=== PATIENT | female | born 2000 | race Caucasian/White ===

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

== ENCOUNTER 2021-09-30 21:07 | Emergency (ER) | payer MEDICAID ==
[~2021-09-30] VITALS: Ht 162.6 cm; Wt 68.4 kg
[2021-09-30] MEDS ORDERED: HYDROcodone/acetaminophen 10/325mg tab PO ONE (22:55)
[2021-09-30] MEDS ORDERED: ORPH100T2 PO (23:43)
[2021-09-30] MEDS ORDERED: HYDR-3972 PO (23:43)
--- NOTE | 2021-09-30 23:44 | NUR ---
Colar taken off, patient resting comfortably on gurney.
[2021-10-01 00:01] VITALS: BP 125/82
== END 2021-10-01 00:05 | disposition home or self-care (01) ==
LOC: ER 21:08
DX: S16.1XXA Strain of muscle, fascia and tendon at neck level, initial encounter (principal); M54.6 Pain in thoracic spine; F41.9 Anxiety disorder, unspecified; Z79.899 Other long term (current) drug therapy; V98.8XXA Other specified transport accidents, initial encounter; Y93.89 Activity, other specified; Y92.89 Other specified places as the place of occurrence of the external cause; Y99.8 Other external cause status
CPT/HCPCS: 72040; 99283; L0172; 96361; 96374; 99152; 99153

== ENCOUNTER 2022-06-28 14:30 | Emergency (ER) | payer MEDICAID, OTHER ==
[~2022-06-28] VITALS: Ht 162.6 cm; Wt 56.0 kg
[~2022-06-28 14:30] MED LIST changes: +ORPH100T2 PO
[2022-06-28 14:45] VITALS: BP 132/79
--- NOTE | 2022-06-28 15:00 | NUR ---
XRAY at bedside
[2022-06-28] MEDS ORDERED: IBUP-1986 PO (15:48)
== END 2022-06-28 15:57 | disposition home or self-care (01) ==
LOC: ER 14:31
DX: M25.512 Pain in left shoulder (principal); F41.9 Anxiety disorder, unspecified; Z87.448 Personal history of other diseases of urinary system
CPT/HCPCS: 73030; 99283

== ENCOUNTER 2022-08-19 20:30 | Emergency (ER) | payer MEDICAID ==
[~2022-08-19] VITALS: Ht 162.6 cm; Wt 59.1 kg
[~2022-08-19 20:30] MED LIST changes: +IBUP-1986 PO; -ORPH100T2 PO; +ORPH100T4 PO
[2022-08-19 21:19] LABS: BASOPHILS % (AUTO) 0.5 % (0-1); EOSINOPHILS % (AUTO) 0.2 % (0-6); HEMATOCRIT 40.8 % (35.0-45.0); HEMOGLOBIN 13.4 g/dl (12.0-16.0); LYMPHOCYTES # (AUTO) 1.5 X10'3 (1.1-4.8); LYMPHOCYTES % (AUTO) 26.1 % (21-51); MEAN CORPUSCULAR HEMOGLOBIN 28.3 PG (27.0-31.0); MEAN CORPUSCULAR HGB CONC 32.9 g/dL (33.0-36.5); MEAN CORPUSCULAR VOLUME 85.9 FL (78-98); MEAN PLATELET VOLUME 11.3 FL (7.4-10.4); MONOCYTES # (AUTO) 0.5 X10'3 (0-0.9); MONOCYTES % (AUTO) 8.6 % (2-12); NEUTROPHILS # (AUTO) 3.6 X10'3 (1.8-7.7); NEUTROPHILS % (AUTO) 64.6 % (42-75); PLATELET COUNT 119 X10'3 (140-440); RED BLOOD COUNT 4.75 X10'6 (4.20-5.60); WHITE BLOOD COUNT 5.6 X10'3 (4.5-11.0)
[2022-08-19 21:33] LABS: ALANINE AMINOTRANSFERASE 14 U/L (12-78); ALBUMIN 3.4 G/DL (3.4-5.0); ALKALINE PHOSPHATASE 51 IU/L (46-116); ANION GAP 11 (8-16); ASPARTATE AMINO TRANSFERASE 15 U/L (10-37); BILIRUBIN,TOTAL 0.3 MG/DL (0.1-1.0); BLOOD UREA NITROGEN 9 MG/DL (7-18); BUN/CREATININE RATIO 12.9 (10.0-20.0); CHLORIDE 104 MMOL/L (99-107); GLUCOSE 120 MG/DL (70-104); POTASSIUM 3.8 MMOL/L (3.5-5.1); SODIUM 142 MMOL/L (135-145); TOTAL CARBON DIOXIDE 26.8 MMOL/L (24-32); TOTAL PROTEIN 6.7 G/DL (6.4-8.2); eGFR > 90 ML/MIN
[2022-08-19 21:36] LABS: CLARITY,URINE CLEAR (Clear); COLOR,URINE YELLOW (Yellow); GLUCOSE, URINE NEGATIVE (Neg); KETONES,URINE NEGATIVE (Neg); LEUKOCYTE ESTERASE ,URINE NEGATIVE (Neg); NITRITES, URINE NEGATIVE (Neg); OCCULT BLOOD,URINE NEGATIVE (Neg); PH,URINE 7.5 (4.8-8.0); PROTEIN,URINE NEGATIVE (Neg); UROBILINOGEN,URINE 0.2 E.U/dL (0.2-1.0)
[2022-08-19 21:37] LABS: URINE HCG NEGATIVE (NEG)
[2022-08-19 21:39] LABS: CALCIUM 9.2 MG/DL (8.5-10.1)
[2022-08-19 21:40] LABS: UA COLLECTION TYPE CLN CATCH MIDSTREAM
[2022-08-19] MEDS ORDERED: POLY17PO10 PO (22:25)
[2022-08-19 22:39] VITALS: BP 126/82
== END 2022-08-19 22:41 | disposition home or self-care (01) ==
LOC: ER 20:31
DX: K92.1 Melena (principal); R10.30 Lower abdominal pain, unspecified
CPT/HCPCS: 36415; 74176; 80053; 81003; 81025; 85025; 99284

== ENCOUNTER 2022-11-23 19:05 | Emergency (ER) | payer MEDICAID ==
[~2022-11-23] VITALS: Ht 162.6 cm; Wt 47.6 kg
[2022-11-23 19:37] VITALS: TEMP 98.6
[2022-11-23] MEDS ORDERED: normal saline 1000ml 1,000 ML IV ONE (20:00)
[2022-11-23] MEDS ORDERED: ondansetron/PF 4mg/2ml inj IV ONE (20:00)
[2022-11-23 20:46] LABS: BASOPHILS % (AUTO) 0.2 % (0-1); EOSINOPHILS % (AUTO) 0.1 % (0-6); HEMATOCRIT 46.5 % (35.0-45.0); HEMOGLOBIN 15.2 g/dl (12.0-16.0); LYMPHOCYTES % (AUTO) 8.4 % (21-51); MEAN CORPUSCULAR HEMOGLOBIN 29.5 PG (27.0-31.0); MEAN CORPUSCULAR HGB CONC 32.7 g/dL (33.0-36.5); MEAN CORPUSCULAR VOLUME 90.1 FL (78-98); MEAN PLATELET VOLUME 11.1 FL (7.4-10.4); MONOCYTES # (AUTO) 0.6 X10'3 (0-0.9); MONOCYTES % (AUTO) 5.2 % (2-12); NEUTROPHILS # (AUTO) 9.8 X10'3 (1.8-7.7); NEUTROPHILS % (AUTO) 86.1 % (42-75); PLATELET COUNT 142 X10'3 (140-440); RED BLOOD COUNT 5.16 X10'6 (4.20-5.60); RED CELL DISTRIBUTION WIDTH 14.1 % (11.5-14.5); WHITE BLOOD COUNT 11.4 X10'3 (4.5-11.0)
[2022-11-23 21:01] LABS: ALANINE AMINOTRANSFERASE 20 U/L (12-78); ALBUMIN 4.1 G/DL (3.4-5.0); ALBUMIN/GLOBULIN RATIO 1.3 (1.1-1.5); ALKALINE PHOSPHATASE 63 IU/L (46-116); ANION GAP 10 (8-16); ASPARTATE AMINO TRANSFERASE 13 U/L (10-37); BILIRUBIN,TOTAL 0.5 MG/DL (0.1-1.0); BLOOD UREA NITROGEN 11 MG/DL (7-18); BUN/CREATININE RATIO 12.1 (10.0-20.0); CALCIUM 9.8 MG/DL (8.5-10.1); CHLORIDE 106 MMOL/L (99-107); CREATININE 0.91 MG/DL (0.40-0.90); GLUCOSE 112 MG/DL (70-104); LIPASE < 50 U/L (73-393); POTASSIUM 3.5 MMOL/L (3.5-5.1); SODIUM 142 MMOL/L (135-145); TOTAL CARBON DIOXIDE 26.2 MMOL/L (24-32); TOTAL PROTEIN 7.3 G/DL (6.4-8.2); eCRCL 73 ML/MIN; eGFR 78 ML/MIN
[2022-11-23 21:04] LABS: HCG SERUM QL NEGATIVE
[2022-11-23] MEDS ORDERED: proCHLORperazine 10 MG/2 ml inj IV ONE (21:15)
[2022-11-23] MEDS ORDERED: diphenhydrAMINE 50 mg/ml inj IV ONE (21:15)
[2022-11-23 21:40] LABS: URINE HCG NEGATIVE (NEG)
[2022-11-23 21:47] LABS: BILIRUBIN,URINE NEGATIVE (Neg); CLARITY,URINE SLIGHTLY CLOUDY (Clear); COLOR,URINE YELLOW (Yellow); GLUCOSE, URINE NEGATIVE (Neg); KETONES,URINE TRACE mg/dl (Neg); LEUKOCYTE ESTERASE ,URINE SMALL (Neg); NITRITES, URINE NEGATIVE (Neg); OCCULT BLOOD,URINE MODERATE (Neg); PROTEIN,URINE NEGATIVE (Neg); UROBILINOGEN,URINE 0.2 E.U/dL (0.2-1.0)
[2022-11-23 21:48] LABS: UA COLLECTION TYPE CLN CATCH MIDSTREAM
[2022-11-23 21:51] LABS: WBC,URINE 20-30 /HPF (0-4)
[2022-11-23 21:53] LABS: BACTERIA,URINE FEW /HPF (Neg); MUCUS STRANDS MANY /LPF (Neg); SQUAMOUS EPITHELIAL CELL,UR MODERATE /LPF (FEW)
[2022-11-23] MEDS ORDERED: ONDA4TAB12 PO (21:53)
[2022-11-23 22:01] LABS: LARGE PLATELETS MODERATE; PLATELET ESTIMATE NORMAL
[2022-11-23 22:04] VITALS: BP 103/60; PULSE 95; RESP 17; O2SAT 96
== END 2022-11-23 22:06 | disposition home or self-care (01) ==
LOC: ER 19:06
DX: R11.2 Nausea with vomiting, unspecified (principal); R10.84 Generalized abdominal pain; Z79.899 Other long term (current) drug therapy
CPT/HCPCS: 36415; 80053; 81001; 81025; 83690; 84703; 85008; 85025; 87088; 96361; 96374; 96375; 99284; J0780; J1200; J2405; J7030

== ENCOUNTER 2022-12-11 11:17 | Emergency (ER) | payer MEDICAID ==
[~2022-12-11] VITALS: Ht 162.6 cm; Wt 54.5 kg
[~2022-12-11 11:17] MED LIST changes: +ONDA4TAB12 PO
[2022-12-11 11:30] VITALS: TEMP 100.2
[2022-12-11 12:00] LABS: BASOPHILS % (AUTO) 0.2 % (0-1); EOSINOPHILS % (AUTO) 0.1 % (0-6); HEMATOCRIT 44.1 % (35.0-45.0); HEMOGLOBIN 14.8 g/dl (12.0-16.0); LYMPHOCYTES # (AUTO) 0.7 X10'3 (1.1-4.8); LYMPHOCYTES % (AUTO) 10.9 % (21-51); MEAN CORPUSCULAR HEMOGLOBIN 29.8 PG (27.0-31.0); MEAN CORPUSCULAR HGB CONC 33.5 g/dL (33.0-36.5); MEAN PLATELET VOLUME 10.6 FL (7.4-10.4); MONOCYTES # (AUTO) 0.6 X10'3 (0-0.9); MONOCYTES % (AUTO) 10.4 % (2-12); NEUTROPHILS # (AUTO) 4.9 X10'3 (1.8-7.7); NEUTROPHILS % (AUTO) 78.4 % (42-75); PLATELET COUNT 131 X10'3 (140-440); RED BLOOD COUNT 4.96 X10'6 (4.20-5.60); WHITE BLOOD COUNT 6.2 X10'3 (4.5-11.0)
[2022-12-11 12:11] LABS: ALANINE AMINOTRANSFERASE 15 U/L (12-78); ALBUMIN 3.6 G/DL (3.4-5.0); ALKALINE PHOSPHATASE 61 IU/L (46-116); ANION GAP 8 (8-16); ASPARTATE AMINO TRANSFERASE 15 U/L (10-37); BILIRUBIN,TOTAL 0.5 MG/DL (0.1-1.0); BLOOD UREA NITROGEN 7 MG/DL (7-18); BUN/CREATININE RATIO 10.1 (10.0-20.0); CALCIUM 9.2 MG/DL (8.5-10.1); CHLORIDE 102 MMOL/L (99-107); CREATININE 0.69 MG/DL (0.40-0.90); GLUCOSE 97 MG/DL (70-104); LIPASE < 50 U/L (73-393); POTASSIUM 3.7 MMOL/L (3.5-5.1); SODIUM 137 MMOL/L (135-145); TOTAL CARBON DIOXIDE 26.7 MMOL/L (24-32); TOTAL PROTEIN 7.1 G/DL (6.4-8.2); eCRCL 111 ML/MIN; eGFR > 90 ML/MIN
[2022-12-11 13:21] LABS: BILIRUBIN,URINE NEGATIVE (Neg); CLARITY,URINE CLOUDY (Clear); COLOR,URINE YELLOW (Yellow); GLUCOSE, URINE NEGATIVE (Neg); KETONES,URINE NEGATIVE (Neg); LEUKOCYTE ESTERASE ,URINE LARGE (Neg); NITRITES, URINE NEGATIVE (Neg); OCCULT BLOOD,URINE TRACE-INTACT (Neg); PROTEIN,URINE NEGATIVE (Neg)
[2022-12-11 13:22] LABS: UA COLLECTION TYPE CLN CATCH MIDSTREAM; URINE HCG NEGATIVE (NEG)
[2022-12-11] MEDS ORDERED: CEFD300C3 PO (13:34)
[2022-12-11 13:36] LABS: WBC,URINE 50-100 /HPF (0-4)
[2022-12-11 13:37] LABS: BACTERIA,URINE 4+ /HPF (Neg); RBC,URINE 0-2 /HPF (0-2); SQUAMOUS EPITHELIAL CELL,UR MANY /LPF (FEW); WBC CLUMPS,URINE FEW /HPF (NEGATIVE)
[2022-12-11 14:33] VITALS: BP 132/78; PULSE 122; RESP 20; O2SAT 99
[2022-12-11] MEDS ORDERED: CIPR-202 PO (18:32)
== END 2022-12-11 14:37 | disposition home or self-care (01) ==
LOC: ER 11:17
DX: N39.0 Urinary tract infection, site not specified (principal); F41.9 Anxiety disorder, unspecified; Z79.899 Other long term (current) drug therapy
CPT/HCPCS: 80053; 81001; 81025; 83690; 85025; 99283

== ENCOUNTER 2022-12-11 16:38 | Emergency (ER) | payer MEDICAID ==
[~2022-12-11] VITALS: Ht 167.6 cm; Wt 54.5 kg
[~2022-12-11 16:38] MED LIST changes: +CEFD300C3 PO
[2022-12-11] MEDS ORDERED: methylPREDNISolone sod succ 125mg/2ml vial IV ONE (16:55)
[2022-12-11] MEDS ORDERED: diphenhydrAMINE 50 mg/ml inj IV ONE (16:55)
--- NOTE | 2022-12-11 17:19 | NUR ---
pt seen earlier in er for urinary symtpoms, pt prescribed cefdinir and is now back with a reaction to the med. Pt has elevated hr and hot flashes along with what she states feels like sore throat. Pt given iv benadryl solu med
[2022-12-11] MEDS ORDERED: CIPR-202 PO (18:32)
--- NOTE | 2022-12-11 18:58 | NUR ---
recmalickvd report assuming care of pt
[2022-12-11] MEDS ORDERED: normal saline 1000ml 1,000 ML IV ONE (20:00)
[2022-12-11] MEDS ORDERED: LORazepam 2 mg/ml vial IM ONE (20:00)
[2022-12-11 21:31] VITALS: BP 112/67; PULSE 119; RESP 16; TEMP 98.8; O2SAT 98
== END 2022-12-11 21:34 | disposition home or self-care (01) ==
LOC: ER 16:39
DX: L53.9 Erythematous condition, unspecified (principal)
CPT/HCPCS: 93005; 96361; 96372; 96374; 96375; 99285; J1200; J2060; J2930; J7030

== ENCOUNTER 2023-04-08 13:01 | Emergency (ER) | payer MEDICAID ==
[~2023-04-08 13:01] MED LIST changes: -CEFD300C3 PO
[2023-04-08 13:36] LABS: BASOPHILS % (AUTO) 0.5 % (0-1); EOSINOPHILS % (AUTO) 0.3 % (0-6); HEMATOCRIT 44.3 % (35.0-45.0); HEMOGLOBIN 14.5 g/dl (12.0-16.0); LYMPHOCYTES # (AUTO) 1.8 X10'3 (1.1-4.8); LYMPHOCYTES % (AUTO) 26.9 % (21-51); MEAN CORPUSCULAR HEMOGLOBIN 29.3 PG (27.0-31.0); MEAN CORPUSCULAR HGB CONC 32.8 g/dL (33.0-36.5); MEAN CORPUSCULAR VOLUME 89.3 FL (78-98); MEAN PLATELET VOLUME 10.7 FL (7.4-10.4); MONOCYTES # (AUTO) 0.7 X10'3 (0-0.9); NEUTROPHILS # (AUTO) 4.2 X10'3 (1.8-7.7); NEUTROPHILS % (AUTO) 62.3 % (42-75); PLATELET COUNT 191 X10'3 (140-440); RED BLOOD COUNT 4.96 X10'6 (4.20-5.60); WHITE BLOOD COUNT 6.7 X10'3 (4.5-11.0)
[2023-04-08 13:53] LABS: ALANINE AMINOTRANSFERASE 31 U/L (12-78); ALBUMIN 4.1 G/DL (3.4-5.0); ALBUMIN/GLOBULIN RATIO 1.1 (1.1-1.5); ALKALINE PHOSPHATASE 70 IU/L (46-116); ANION GAP 14 (8-16); ASPARTATE AMINO TRANSFERASE 28 U/L (10-37); BILIRUBIN,TOTAL 0.5 MG/DL (0.1-1.0); BLOOD UREA NITROGEN 16 MG/DL (7-18); BUN/CREATININE RATIO 24.6 (10.0-20.0); CALCIUM 9.6 MG/DL (8.5-10.1); CHLORIDE 104 MMOL/L (99-107); CREATININE 0.65 MG/DL (0.40-0.90); GLUCOSE 78 MG/DL (70-104); POTASSIUM 3.6 MMOL/L (3.5-5.1); SODIUM 141 MMOL/L (135-145); TOTAL CARBON DIOXIDE 23.4 MMOL/L (24-32); TOTAL PROTEIN 7.8 G/DL (6.4-8.2); eGFR > 90 ML/MIN
[2023-04-08 14:00] LABS: PRO BRAIN NATRIURETIC PEPTIDE 58 PG/ML (0-125)
== END 2023-04-08 18:07 | disposition left against medical advice (07) ==
LOC: ER 13:01
DX: R07.89 Other chest pain (principal); Z53.21 Procedure and treatment not carried out due to patient leaving prior to being seen by health care provider
CPT/HCPCS: 36415; 80053; 83880; 84484; 85025; 99281

== ENCOUNTER 2023-12-16 13:36 | Emergency (ER) | payer MEDICAID ==
[~2023-12-16] VITALS: Ht 162.6 cm; Wt 60.0 kg
[~2023-12-16 13:36] MED LIST changes: +ONDA-243 PO; -ONDA4TAB12 PO
[2023-12-16 13:51] VITALS: BP 123/83; PULSE 80; RESP 18; TEMP 97.6; O2SAT 98
[2023-12-17] MEDS ORDERED: ONDA-245 PO (00:50)
== END 2023-12-16 14:56 | disposition left against medical advice (07) ==
LOC: ER 13:37
DX: R31.9 Hematuria, unspecified (principal); R19.7 Diarrhea, unspecified; R10.84 Generalized abdominal pain; Z88.8 Allergy status to other drugs, medicaments and biological substances; Z53.21 Procedure and treatment not carried out due to patient leaving prior to being seen by health care provider

== ENCOUNTER 2023-12-29 10:59 | Emergency (ER) | payer MEDICAID ==
[~2023-12-29] VITALS: Ht 162.6 cm; Wt 61.0 kg
[~2023-12-29 10:59] MED LIST changes: +ONDA-245 PO
[2023-12-29 11:18] VITALS: BP 112/65; PULSE 88; RESP 16; TEMP 99.2; O2SAT 99
[2023-12-29] MEDS: LIDOCAINE 1%/EPI 1:100,000 inj. 10 ML multi-dose vial SQ STA (14:41)
[2023-12-29] MEDS: acetaminophen 325mg tablet PO ONE (15:52)
[2023-12-29] MEDS: ondansetron 4mg rapidly disintigrating tab PO ONE (15:52)
== END 2023-12-29 16:08 | disposition home or self-care (01) ==
LOC: ER 11:00
DX: S01.81XA Laceration without foreign body of other part of head, initial encounter (principal); F41.9 Anxiety disorder, unspecified; R11.0 Nausea; Z88.1 Allergy status to other antibiotic agents; Z79.1 Long term (current) use of non-steroidal anti-inflammatories (NSAID); Z79.899 Other long term (current) drug therapy; W01.0XXA Fall on same level from slipping, tripping and stumbling without subsequent striking against object, initial encounter; Y93.89 Activity, other specified; Y92.89 Other specified places as the place of occurrence of the external cause; Y99.8 Other external cause status
CPT/HCPCS: 12013; 99283; A6258; A6449

== ENCOUNTER 2025-01-21 15:36 | Emergency (ER) | payer MEDICAID ==
[~2025-01-21] VITALS: Ht 162.6 cm; Wt 71.0 kg
[2025-01-21 15:45] VITALS: TEMP 102.2
[2025-01-21] MEDS: ibuprofen tablet 400 MG TABLET PO ONE (17:49)
[2025-01-21 18:00] VITALS: BP 130/82; PULSE 98; RESP 16; O2SAT 97
[2025-01-21 18:12] LABS: INFLUENZA TYPE A ANTIGEN RAPID NEG (Negative); INFLUENZA TYPE B ANTIGEN RAPID NEG (Negative)
[2025-01-21 18:13] LABS: STREP A SCREEN NEGATIVE (Neg)
--- NOTE | 2025-01-21 18:15 | Physician Documentation ---
History of Present Illness ~ Chief Complaint: Cold, cough & congestion Stated Complaint: FLU SYMPTOMS Time Seen by MD: 15:49 Primary Medical Doctor: reginald gallegos [facility] Patient is a 24-year-old female that reports to the emergency department for evaluation of cough cold congestion x5 days. Patient reports that she has had intermittent fevers during this time. Patient reports that she has been taking Tylenol and ibuprofen with some relief. Patient denies nausea vomiting diarrhea at this time. No other symptoms reported at this time. Medication Reconciliation Allergies: Coded Allergies: cefdinir (Unverified Allergy, Severe, 01/21/25) Scheduled Ibuprofen (Advil), 400 MG PO TID Ibuprofen (Ibuprofen), 1 TAB PO Q8H ONDANSETRON ODT 4mg tablet (Ondansetron Odt), 1 TABLET PO Q6H Ondansetron 8mg ODT (Ondansetron Odt), 1 TAB PO Q6H Orphenadrine Citrate (Norflex), 1 TAB PO Q12H PRN Pantoprazole Sodium (PROTONIX tablet), 1 TAB PO DAILY Scheduled PRN Phenazopyridine Hcl (Phenazopyridine Hcl), 100 MG PO TID PRN for pain Past Medical History Past Medical History: UTI, Anxiety Past Surgical History: orthopedic surgeries Alcohol Use: None Drug Use: none Lives with: Mother Lives In: Home Occupation: student Review of Systems ROS As stated above in the HPI, otherwise all systems are reviewed and negative. Physical Exam Vital Signs: Temperature: 102.2, Heart Rate: 103, Respiratory Rate: 16, BP: 135/85, Pulse Oximetry: 97, Weight: 71.000 Oxygen Flow Rate: 0 Physical Exam VITALS: Reviewed and as above. GENERAL: Alert, no apparent distress. HEENT: Normocephalic, atraumatic, PERRL, EOMI, dry mucosa, mild erythema noted to the posterior oropharynx, rhinorrhea noted. RESPIRATORY: Lungs clear, normal breath sounds, no respiratory distress. CHEST: No accessory muscle use, no retractions CV: Regular rate, rhythm, no edema, no murmur, No: JVD GI: Soft, non-tender, bowels sounds present, no rebound, guarding, or rigidity BACK: No CVA tenderness, or swelling MUSCULOSKELETAL No deformities, no edema SKIN: Warm and dry, no rash NEURO: Oriented x4, No motor or sensory deficit PSYCH: Normal mood and affect, no agitation Progress Results/Orders Results/Orders Orders - AMIE LOPEZ COGNOS Covid19 Binax Poc Result Entry (01/21/25 17:06) Strep A Rapid (01/21/25 17:06) Influenza Type A&B Rapid Test (01/21/25 17:42) Completed Orders - AMIE LOPEZ COGNOS Acetaminophen 325mg Tablet (Tylenol Tabl (01/21/25 17:40) Ibuprofen Tablet (Motrin Tablet) (01/21/25 17:40) Medications Received in ER Medications (Trade) Dose Ordered Sig/Tamiko Route PRN Reason Start Time Stop Time Status Last Admin Dose Admin (Tylenol tablet) 975 mg ONCE ONCE PO 01/21/25 17:40 01/21/25 17:41 DC 01/21/25 17:49 975 MG (Motrin tablet) 800 mg ONCE ONCE PO 01/21/25 17:40 01/21/25 17:41 DC 01/21/25 17:49 800 MG Vital Signs 01/21/25 15:45 Temp 102.2 Pulse 103 Resp 16 B/P (MAP) 135/85 Pulse Ox 97 O2 Flow Rate 0 Laboratory Tests Test 01/21/25 17:42 01/21/25 17:43 01/21/25 17:48 Medical Decision Making Additional information obtaine: other Findings This patient presents with symptoms suspicious for likely viral upper respiratory infection. Based on history and physical doubt sinusitis. COVID, flu and rapid strep tests were sent off and are pending. Do not suspect underlying cardiopulmonary process. I considered, but think unlikely, dangerous causes of this patients symptoms to include ACS, CHF or COPD exacerbations, pneumonia, pneumothorax. Patient is nontoxic appearing and not in need of emergent medical intervention. Patient told to self isolate at home until symptoms subside for 72 hours, or until she is 24 hours without a fever without taking Tylenol and ibuprofen. Patient will follow up with her primary care provider. Patient will return to the emergency department with any worsening or recurrent symptoms or any additional concerning symptoms that we discussed here today i.e. fever that isn't responsive to Tylenol ibuprofen nausea vomiting so bad that she is unable to keep fluids down symptoms of dehydration or any other symptoms that we discus sed here today. Tylenol ibuprofen as needed for discomfort. Please increase your fluid intake. Please follow up with the primary care provider. Please return to the emergency department with any worsening or recurrent symptoms or any additional concerning symptoms that we discussed here today. Differential Dx:Considerations: Include: Allergic rhinitis, Influenza, Otitis media, Peritonsillar abscess, Pharyngitis-Diphtheria, Pharyngitis-Streptoccal, Pharyngitis-Viral, Pneumonia, Pnuemonitis, Sinusitis, URI, Other Departure Disposition: HOME / SELF CARE / HOMELESS Impression: Primary Impression: Viral upper respiratory infection Condition: Stable Discharge Instructions: Upper Respiratory Infection, Adult Additional Instructions: This patient presents with symptoms suspicious for likely viral upper respiratory infection. Based on history and physical doubt sinusitis. COVID, flu and rapid strep tests were sent off and are pending. Do not suspect underlying cardiopulmonary process. I considered, but think unlikely, dangerous causes of this patients symptoms to include ACS, CHF or COPD exacerbations, pneumonia, pneumothorax. Patient is nontoxic appearing and not in need of emergent medical intervention. Patient told to self isolate at home until symptoms subside for 72 hours, or until she is 24 hours without a fever without taking Tylenol and ibuprofen. Patient will follow up with her primary care provider. Patient will return to the emergency department with any worsening or recurrent symptoms or any additional concerning symptoms that we discussed here today i.e. fever that isn't responsive to Tylenol ibuprofen nausea vomiting so bad that she is unable to keep fluids down symptoms of dehydration or any other symptoms that we discussed here today. Tylenol ibuprofen as needed for discomfort. Please increase your fluid intake. Please follow up with the primary care provider. Please return to the emergency department with any worsening or recurrent symptoms or any additional concerning symptoms that we discussed here today. Referrals: NO PRIMARY CARE PROVIDER (PCP) Education Educated: Patient Educated regarding: diagnosis, treatment, need for follow up Signature Scribe Signature: AScribed for Amie Lopez by MARCELLA Vanegas . 01/21/25 18:16 Attestation: Scribed for Amie Lopez by MARCELLA Vanegas . 01/21/25 18:16 AMIE LOPEZ Jan 21, 2025 18:15
== END 2025-01-21 18:24 | disposition home or self-care (01) ==
LOC: ER 15:37
DX: J11.1 Influenza due to unidentified influenza virus with other respiratory manifestations (principal); B97.89 Other viral agents as the cause of diseases classified elsewhere; Z20.822 Contact with and (suspected) exposure to COVID-19; Z88.1 Allergy status to other antibiotic agents
CPT/HCPCS: 36415; 87081; 87804; 87811; 87880; 99283

== ENCOUNTER 2025-01-30 02:36 | Emergency (ER) | payer MEDICAID ==
[~2025-01-30] VITALS: Ht 162.6 cm; Wt 71.8 kg
[2025-01-30 02:43] VITALS: BP 108/63; PULSE 81; RESP 30; TEMP 97; O2SAT 100
[2025-01-30] MEDS: TETanus/Pertussis (Acell)/Diphther VAC/PF (Tdap-Adult) 0.5ml syringe IMVAC ONE (02:56)
[2025-01-30] MEDS: amox tr/potassium clavulanate 875/125mg TAB PO ONE (02:56)
--- NOTE | 2025-01-30 02:58 | Physician Documentation ---
History of Present Illness General Chief Complaint: Bite-animal Stated Complaint: CAT BITES Time Seen by MD: 02:50 Primary Medical Doctor: reginald gallegos History of Present Illness Initial Comments This is a 24-year-old female who presents for evaluation of multiple cat bites to her left upper extremity. She was attempted to extricate her cat who got tangled up in a curtain when the cat decided to excessively bite her arm and forearm as part of self defense. This was a cath that was acquired by the family at the age of [age], his vaccination status is unknown. This is a family calf however and they are able to monitor it. The patient complains of pain in the left forearm. No particular palliating or aggravating factors. She irrigated copiously and applied multiple bandages over the piercing chan. Denies any other injury. Tetanus is unknown No concern for tobacco, alcohol or illicit substances use Medication Reconciliation Allergies: Coded Allergies: cefdinir (Unverified Allergy, Severe, 01/21/25) Scheduled Ibuprofen (Advil), 400 MG PO TID Ibuprofen (Ibuprofen), 1 TAB PO Q8H ONDANSETRON ODT 4mg tablet (Ondansetron Odt), 1 TABLET PO Q6H Ondansetron 8mg ODT (Ondansetron Odt), 1 TAB PO Q6H Orphenadrine Citrate (Norflex), 1 TAB PO Q12H PRN Pantoprazole Sodium (PROTONIX tablet), 1 TAB PO DAILY Scheduled PRN Phenazopyridine Hcl (Phenazopyridine Hcl), 100 MG PO TID PRN for pain Past Medical History Past Medical History: UTI, Anxiety Past Surgical History: orthopedic surgeries Smoking: Non-Smoker Alcohol Use: None Drug Use: none Lives with: Mother Lives In: Home Occupation: student Review of Systems ROS 10 point review of systems was performed and unless noted above in HPI is negative for acute process/complaint. Physical Exam Physical Exam Vital Signs: Temperature: 97.0, Heart Rate: 81, Respiratory Rate: 30, BP: 108/63, Pulse Oximetry: 100, Weight: 71.800 Oxygen Flow Rate: 0 Physical Exam Physical examination: GENERAL: Awake, alert, oriented, GCS 15, no apparent distress, non-toxic appearing, answers questions, follows commands appropriately. HEENT: Atraumatic, normocephalic, pupils equal, extraocular muscles intact Active gross movements, sclerae anicteric, mucus membranes moist, no stridor. NECK: Midline, no JVD CARDIOVASCULAR: Good skin perfusion without evidence of pallor, mottling. PULMONARY: Nonlabored, symmetric chest rise, no audible wheezing, no accessory muscle use, no respiratory distress, speaking in full sentences. GASTROINTESTINAL: Not distended. NEUROLOGIC: Lucid with normal mental status. Normal facial symmetry. Moves all extremities symmetrically and with purpose. No truncal ataxia. Speech is fluid without evidence of dysarthria or aphasia, no focal deficits appreciated. EXTREMITIES: Acute deformities Skin: warm, dry PSYCHIATRIC: Normal affect, normal insight, normal concentration. Focused exam: [Multiple puncture chan consistent with a cat bites to left upper extremity all along the arm and forearm. No active bleeding. Wounds are clean, dry, with a ointment applied over them as well as bandages. Neurovascularly intact distally.] Progress Results/Orders Results/Orders Orders - HAN GODDARD DO Tetanus/Pertuss/Diph Acell/Pf (Boostrix (01/30/25 02:50) Amox Tr/Potassium Clavulanate (Augmentin (01/30/25 02:50) Vital Signs 01/30/25 02:43 Temp 97.0 Pulse 81 Resp 30 B/P (MAP) 108/63 Pulse Ox 100 O2 Flow Rate 0 Medical Decision Making Additional information obtaine: family Findings Facility Status: ED Holds, RME process The plan was discussed with the patient, who demonstrates clear understanding of the plan and is in agreement with the plan unless otherwise noted in the chart. All questions have been answered, all concerns were addressed unless otherwise d ocumented. I was available throughout their ED stay for frequent reassessment and questions. Differential Diagnoses (considered and possible or likely): [Cat bite, acute traumatic pain, encounter for tetanus vaccination, clinically no evidence of neurovascular injury] ??Differential Diagnoses (considered and unlikely, not requiring evaluation currently): [See above] MDM Data Please see HPI for the following: Independent Historians and external Records Review. Historian: [Patient] Independent Historians: ?[Mother, record review] Medication Management: [Reviewed medication list] Social History and determinants: [Reviewed] Please see the body of the note for the following: Any independent interpretations of ECG, imaging studies. All vitals signs/haemodynamics, ordered tests were independently reviewed and interpreted by myself. Nursing triage complaint and vitals reviewed, additional nursing notes were reviewed as available and I agree unless otherwise noted or documented in contradiction in the chart Vital Signs: Independently reviewed Labs: Independently interpreted Imaging: Independently interpreted Old Medical Records: Independently reviewed, see HPI for relevant summary and information Pulse Oximetry: [100%] interpreted as [normal on room air] by me Additionally notably showing: [Hemodynamically stable] Tests considered but not ordered include: [Hematologic workup and imaging has been considered but does not appear to be necessary given clinical nature of diagnosis] Social Determinants of Health Impact: Patient was evaluated in [facility], or [facility] [place] to healthcare due to below par ratio of patient to medical providers. [] Comorbid Conditions Impacting Present Evaluation and Care/Treatment: [None] Management Discussions with other Healthcare Providers: [None] Treatment and Disposition Medication Management (Given or considered): [Initial dose of antibiotics]. See EMR for details Consideration for Hospitalization/Escalation/Deescalation of Care: Admission for observation has been considered, [however the patient is able to tolerate p.o., their symptoms are controlled, they are able to rely on oral medications, and their chief complaint/diagnosis can be managed on outpatient basis.] ?ED Course:?[The patient is allergic to cefdinir, she has a rash and high blood pressure is a reaction. Per mom and patient she does not not have known allergy to Augmentin or amoxicillin and had it before] ?Shared decision making:?[Patient is hemodynamically stable for discharge home with follow with their primary care provider. [ ] Specific and cautious return precautions provided and discussed with full understanding. Any incidental findings were also discussed and follow up recommendations given. [] All questions answered. Patient/family were able to verbalize back return precautions. Patient/family agree to plan. Copies of imaging and laboratory studies were provided.] Code status:?FULL Please see the full Electronic Medical Record for full details of nursing docum entation, medications list, other records of complete past medical history and conditions, vital signs, laboratory studies, and any radiologic study interpretations by radiologists. Portions of this note were completed using [employer] dictation software and as a result there may exist minor errors in spelling. I have reviewed elements of past family and social history and agree as included in note. Differential Diagnosis See main note Departure Disposition: HOME / SELF CARE / HOMELESS Impression: Primary Impression: Cat bite of left forearm Additional Impressions: Acute traumatic pain Tetanus toxoid inoculation Condition: Improved Discharge Instructions: Animal Bite, Adult Referrals: NO PRIMARY CARE PROVIDER (PCP) Prescriptions Amox Tr/Potassium Clavulanate (Augmentin 875-125 Tablet) 1 Each Tablet 1 TAB PO Q12H for 7 Days, #14 TAB Prov: HAN GODDARD DO 01/30/25 Education Educated: Patient, Family Educated regarding: diagnosis, treatment, prognosis, need for follow up Signature Scribe Signature: No scribe Attestation: Date: Jan 30, 2025 Time: 02:59 This note accurately reflects clinical decisions, work performed by myself, DO RUPESH Singh NICHOLAS M DO Jan 30, 2025 02:58
[2025-01-30] MEDS ORDERED: AMOX-117 PO (02:59)
== END 2025-01-30 03:01 | disposition home or self-care (01) ==
LOC: ER 02:36
DX: S51.852A Open bite of left forearm, initial encounter (principal); G89.11 Acute pain due to trauma; F41.9 Anxiety disorder, unspecified; Z88.1 Allergy status to other antibiotic agents; W55.01XA Bitten by cat, initial encounter; Y93.89 Activity, other specified; Y92.89 Other specified places as the place of occurrence of the external cause; Y99.8 Other external cause status
CPT/HCPCS: 90471; 90715; 99283

== ENCOUNTER 2025-02-14 21:55 | Emergency (ER) | payer MEDICAID ==
[~2025-02-14] VITALS: Ht 162.6 cm; Wt 70.9 kg
--- NOTE | 2025-02-14 23:56 | Physician Documentation ---
History of Present Illness ~ Chief Complaint: Rash Stated Complaint: RASH Time Seen by MD: 23:40 Primary Medical Doctor: reginald gallegos [facility] 24-year-old female who presents with generalized diffuse pruritic rash for the past four days, patient reports no known exposures. Patient reports no other symptoms or concerns including no headache, fever cough, or other illness. Medication Reconciliation Allergies: Coded Allergies: cefdinir (Unverified Allergy, Severe, 01/21/25) Scheduled Diphenhydramine HCl (Benadryl), 1 CAP PO HS Famotidine (Pepcid), 1 TAB PO Q12H Ibuprofen (Advil), 400 MG PO TID Ibuprofen (Ibuprofen), 1 TAB PO Q8H ONDANSETRON ODT 4mg tablet (Ondansetron Odt), 1 TABLET PO Q6H Ondansetron 8mg ODT (Ondansetron Odt), 1 TAB PO Q6H Orphenadrine Citrate (Norflex), 1 TAB PO Q12H PRN Pantoprazole Sodium (PROTONIX tablet), 1 TAB PO DAILY Scheduled PRN Phenazopyridine Hcl (Phenazopyridine Hcl), 100 MG PO TID PRN for pain Past Medical History Past Medical History: No Pertinent History, UTI, Anxiety Past Surgical History: orthopedic surgeries Alcohol Use: None Drug Use: none Lives with: Mother Lives In: Home Occupation: student Review of Systems ROS As stated above in the HPI, otherwise all systems are reviewed and negative. Physical Exam Vital Signs: Temperature: 97.8, Source: Oral, Heart Rate: 99, Respiratory Rate: 18, BP: 122/77, Pulse Oximetry: 99, Weight: 70.900 Oxygen Flow Rate: 0 Physical Exam VITALS: Reviewed and as above. GENERAL: Alert, nontoxic appearing, no apparent distress. RESPIRATORY: No increased work of breathing, no respiratory distress, speaking in full clear sentences SKIN: Diffuse patchy erythematous pruritic rash to limbs, trunk, and neck, does not involve orbital area, palms, soles, or mucosa Progress Results/Orders Results/Orders Completed Orders - ALFRED PRICE Famotidine Tablet (Pepcid Tablet) (02/14/25 23:55) Triamcinolone Acet 40mg/Ml Inj (Kenalog- (02/14/25 23:55) Medications Received in ER Medications (Trade) Dose Ordered Sig/Tamiko Route PRN Reason Start Time Stop Time Status Last Admin Dose Admin (Pepcid tablet) 20 mg ONCE ONCE PO 02/14/25 23:55 02/14/25 23:56 DC 02/15/25 00:02 20 MG (Kenalog-40 inj) 40 mg ONCE ONCE IM 02/14/25 23:55 02/14/25 23:58 DC 02/15/25 00:02 40 MG Vital Signs 02/14/25 02/15/25 22:00 00:11 Temp 97.8 98.6 Pulse 99 92 Resp 18 18 B/P (MAP) 122/77 120/72 Pulse Ox 99 99 O2 Flow Rate 0 Medical Decision Making Additional information obtaine: N/A Findings 24-year-old female presented with diffuse patchy erythematous pruritic rash to limbs, trunk, and neck without involvement of palms, soles, mucosa or periorbital area. It was reassuring patient reported no additional symptoms including fever cough, or other general illness. While patient reported no recent exposures rash does appear to be most likely a contact dermatitis and we will be treated such with dose of steroid and prescription for Pepcid and Benadryl for pruritus. Patient is otherwise well-appearing physical exam benign and appropriate for outpatient follow up. Differential Dx:Considerations: Include: Atopic dermatitis, Candidiasis, Contact dermatitis, Drug reaction, Erysipelas, Herpes zoster, Herpes simplex, Pediculosis, Pityriasis rosea, Psoriaisis, Scabies, Scarlet fever, Tinea, Urticaria, Varicella, Viral exanthema Departure Time of Disposition: 23:59 Disposition: 01 HOME / SELF CARE / HOMELESS Impression: Primary Impression: Rash Condition: Improved Discharge Instructions: Contact Dermatitis Additional Instructions: Please use the prescribed Benadryl and Pepcid as needed for itching. Please follow up with your primary care provider in the next few days. Please return to the emergency department for any new or worsening concerning symptoms. Referrals: NO PRIMARY CARE PROVIDER (PCP) Prescriptions Famotidine (Pepcid) 20 Mg Tablet 1 TAB PO Q12H for 14 Days, #30 TAB 0 Refills Prov: ALFRED PRICE [employer] 02/15/25 Diphenhydramine HCl (Benadryl) 25 Mg Capsule 1 CAP PO HS for 14 Days, #14 CAP 0 Refills Prov: ALFRED PRICE 02/15/25 Education Educated: Patient, Family Educated regarding: diagnosis, treatment, prognosis, need for follow up Signature Scribe Signature: No scribe Attestation: The note accurately reflects work and decisions made by me.MARCELLA Valdez 02/15/25 00:01 ALFRED PRICEP Feb 14, 2025 23:56
[2025-02-15] MEDS ORDERED: DIPH25CA83 PO (00:01)
[2025-02-15] MEDS ORDERED: FAMO-129 PO (00:01)
[2025-02-15] MEDS: triamcinolone acetonide 40mg/ml inj IM ONE (00:02)
[2025-02-15 00:11] VITALS: BP 120/72; PULSE 92; RESP 18; TEMP 98.6; O2SAT 99
== END 2025-02-15 00:12 | disposition home or self-care (01) ==
LOC: ER 21:55
DX: R21 Rash and other nonspecific skin eruption (principal); F41.9 Anxiety disorder, unspecified; Z88.1 Allergy status to other antibiotic agents; Z79.899 Other long term (current) drug therapy; Z98.890 Other specified postprocedural states
CPT/HCPCS: 96372; 99283; J3301